=== PATIENT | female | born 2005 | race Caucasian/White ===

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

== ENCOUNTER 2024-09-13 06:04 | Emergency (ER) | payer BC, SELFPAY ==
[2024-09-13 06:08] VITALS: PULSE 90; TEMP 36.8; O2SAT 100; BMI 39.0
--- OUTSIDE RECORDS SUMMARY | 2024-09-13 06:11 | XMS_ITS | CCD ---
Author Organization [facility] Inform ion Partnership [facility] Care Team Providers Care Bag Worker Name Role Phone TING REYEZ Unavailable Unavailable WNEKLAKEISHA Unavailable Unavailable WNEK, LAKEISHA Welch Unavailable Unavailable AICHHOLZ, GAMMA OPERATOR ANA Admitting Unavailable AICHHOLZ, GAMMA OPERATOR ANA Consulting Unavailable WNEK, DR LAKEISHA Welch Primary Care Unavailable AICHHOLZ, GAMMA OPERATOR ANA Attending Unavailable AICHHOLZ, GAMMA OPERATOR ANA Admitting Unavailable WNEK, DR LAKEISHA Welch Primary Care Unavailable AICHHOLZ, MILADY ANA Consulting Unavailable AICHHOLZ, GAMMA OPERATOR ANA Attending Unavailable MISC, DR HURLEY Admitting Unavailable WNEK, DR LAKEISHA Welch Primary Care Unavailable MISC, DR HURLEY Attending Unavailable [facility] Primary Care Physician Unavailab ANA Matson Primary Care Physician James Stover Attending Unavailable James Stover Admitting Unavailable James Stover Attending Unavailable James Stover Admitting Unavailable James Stover Attending Unavailable James Stover Admitting Unavailable Aichholz MANAGER INVESTIGATIONS, Ana Unavailable Aichmolly MANAGER INVESTIGATIONS, Ana Unavailable Sudhakar Augustin MD Primary Care Provider [phone] Sudhakar Augustin MD Primary Care Provider NAPOLEON WHEELERA Attending Unavailable THOMASHKIRKZ ANA Attending Unavailable THOMASHMOLLY ANA Attending Unavailable LIAM ANA Attending Unavailable Allergies Allergy Classification Reported Allergen(s) Allergy Type Date of Onset Reaction(s) Facility (2 sources) No Known Medication Allergies; Translations: [No Known Medication Allergies] Propensity to adverse reactions (disorder) [facility] Repository Medications Current Medications Medication Drug Class(es) Dates Sig (Normalized) Sig (Original) atomoxetine 40 mg oral capsule (2 sources) Norepinephrine Reuptake Inhibitor Start: 05-02-2024 End: 06-01-2024 take 1 capsule by mouth once daily atomoxetine (Strattera) 40 MG capsule Indications: Attention deficit hyperactivity disorder (ADHD), combined type (CMS/HCC) Take 1 capsule (40 mg) by mouth Daily Swallow capsule whole; do not open. If opened accidentally, do not touch eyes; wash hands immediately (product is an eye irritant). 30 capsule 05/02/2024 06/01/2024 Active Ethinyl Estradiol / norgestimate (6 sources) Progestin, Estrogen Start: 02-28-2024 take 1 tablet by mouth once daily norgestimate-ethin yl estradiol (Ortho Tri-Cyclen,Triness a) 0.18/0.215/0.25 MG-35 MCG tablet Indications: Menorrhagia with regular cycle Take 1 tablet by mouth Daily for 28 days 28 tablet 2 02/28/2024 Active Start: 02-28-2024 End: 03-27-2024 take 1 tablet by mouth once daily norgestimate-ethinyl estradiol (Ortho Tri-Cyclen,Trinessa) 0.18/0.215/0.25 MG-35 MCG tablet Indications: Menorrhagia with regular cycle Take 1 tablet by mouth Daily for 28 days 28 tablet 2 02/28/2024 03/27/2024 Active FLUoxetine 40 mg oral capsule (19 sources) Serotonin Reuptake Inhibitor Start: 05-02-2024 End: 06-01-2024 take 1 capsule by mouth once daily FLUoxetine (PROzac) 40 MG capsule Indications: JUANITA (generalized anxiety disorder) (CMS/HCC) Take 1 capsule (40 mg) by mouth Daily 30 capsule 2 05/02/2024 Active Start: 11-02-2023 End: 05-02-2024 take 1 capsule by mouth once daily FLUoxetine (PROzac) 10 MG capsule Indications: JUANITA (generalized anxiety disorder) (CMS/HCC) Take 1 capsule (10 mg) by mouth Daily 30 capsule 1 02/28/2024 03/29/2024 Active Start: 11-02-2023 End: 05-02-2024 take 1 capsule by mouth once daily FLUoxetine (PROzac) 20 MG capsule Indications: JUANITA (generalized anxiety disorder) ([facility]) Take 1 capsule (20 mg) by mouth Daily 30 capsule 1 02/28/2024 03/29/2024 Active guanFACINE 2 mg oral tablet (2 sources) Central alpha-2 Adrenergic Agonist Start: 03-28-2020 take 1 tablet by mouth twice daily guanfacine 2 mg oral tablet 2 mg = 1 tab(s), Oral, BID, # 60 tab(s), Refills(s) 5, Pharmacy: [facility]/pharmacy #[id number], 158, cm, 01/19/20 9:42:00 EDT, Height/Length Dosing, 93, kg, 01/19/20 9:42:00 EDT, Weight Dosing Start Date: 03/28/20 Status: Ordered lisdexamfetamine dimesylate 70 mg oral capsule (6 sources) Central Nervous System Stimulant Start: 03-28-2020 Vyvanse 70 mg oral capsule 70 mg, 1 cap(s), Oral, qAM, 30 cap(s), Refill(s) 0, Fill after 05/24/2020, [facility]/pharmacy #[id number], 158, cm, 01/19/20 9:42:00 EDT, Height/Length Dosing, 93, kg, 01/19/20 9:42:00 EDT, Weight Dosing Start Date: 03/28/20 Status: Ordered sertraline 100 mg oral tablet (2 sources) Serotonin Reuptake Inhibitor Start: 03-28-2020 take 1 tablet by mouth once daily Zoloft 100 mg Tab 100 mg = 1 tab(s), Oral, Daily, # 30 tab(s), Refills(s) 5, Pharmacy: [facility]/pharmacy #[id number], 158, cm, 01/19/20 9:42:00 EDT, Height/Length Dosing, 93, kg, 01/19/20 9:42:00 EDT, Weight Dosing Start Date: 03/28/20 Status: Ordered Completed/Discontinued Medications Medication Drug Class(es) Dates Sig (Normalized) Sig (Original) 24 hr amphetamine aspartate 3.75 mg / amphetamine sulfate 3.75 mg / dextroamphetamine saccharate 3.75 mg / dextroamphetamine sulfate 3.75 mg extended release oral capsule (20 sources) Central Nervous System Stimulant Start: 11-04-2023 End: 05-28-2024 take 1 capsule by mouth in the morning, then take 5 capsules by mouth every twenty-four hours amphetamine-dextro amphetamine XR (Adderall XR) 15 MG 24 hr capsule Indications: Attention deficit hyperactivity disorder (ADHD), combined type (CMS/HCC) Take 1 capsule (15 mg) by mouth in the morning. Do not crush or chew.. Do not start before January 03, 2024. 30 capsule 01/03/2024 02/28/2024 Discontinued (Therapy completed) Start: 03-28-2020 Adderall 15 mg oral tablet 15 mg, 1 tab(s), Oral, BID, 60 tab(s), Refill(s) 0, with breakfast and lunch Fill after 05/24/2020, [facility]/pharmacy #[id number], 158, cm, 01/19/20 9:42:00 EDT, Height/Length Dosing, 93, kg, 01/19/20 9:42:00 EDT, Weight Dosing Start Date: 03/28/20 Status: Ordered Problems Active Problems Problem Classification Problem Date Documented Date Episodic/Chronic Anxiety disorders (13 sources) Generalized anxiety disorder; Translations: [Generalized anxiety disorder] Onset: 08-02-2023 12-16-2018 Chronic Attention-deficit, conduct, and disruptive behavior disorders (13 sources) Attention deficit hyperactivity disorder, combined type; Translations: [Attention-deficit hyperactivity disorder, combined type] Onset: 08-02-2023 12-16-2018 Chronic Esophageal disorders (7 sources) Gastroesophageal reflux disease without esophagitis; Translations: [Gastro-esophageal reflux disease without esophagitis] Onset: 08-02-2023 08-02-2023 Chronic Menstrual disorders (8 sources) Menorrhagia; Translations: [Excessive and frequent menstruation with regular cycle] Onset: 02-28-2024 02-28-2024 Chronic Other nutritional; endocrine; and metabolic disorders (11 sources) Obesity caused by energy imbalance; Translations: [Morbid (severe) obesity due to excess calories] Onset: 03-26-2017 02-28-2024 Chronic Other nutritional; endocrine; and metabolic disorders (11 sources) Body mass index 30+ - obesity; Translations: [Body mass index (BMI) 35.0-35.9, adult] Onset: 02-28-2024 02-28-2024 Chronic Other upper respiratory disease (7 sources) Perennial allergic rhinitis; Translations: [Other allergic rhinitis] Onset: 03-26-2017 08-02-2023 Chronic Other upper respiratory disease (7 sources) Allergic disposition; Translations: [Other allergic rhinitis] Onset: 11-04-2023 11-04-2023 Chronic Residual codes; unclassified (4 sources) Obstructive sleep apnea (adult) (pediatric); Translations: [OBSTRUCTIVE SLEEP APNEA] Onset: 07-20-2022 Chronic Residual codes; unclassified (9 sources) Obstructive sleep apnea syndrome; Translations: [Obstructive sleep apnea (adult) (pediatric)] Onset: 03-26-2017 02-28-2024 Chronic Past or Other Problems Problem Classification Problem Date Documented Da te Episodic/Chronic Mood disorders (7 sources) Mood disorders Onset: 11-04-2023 11-04-2023 Other skin disorders (7 sources) Acne vulgaris; Translations: [Acne vulgaris] Onset: 08-02-2023 08-02-2023 Episodic Results Test Name Value Interpretation Reference Range Facility C Urineon 10-23-2023 Bacteria identified Cx Nom (U) Microbiology PROCEDURE: Urine Culture [R1] SOURCE: U CleanCatch BODY SITE: COLLECTED DATE/TIME: 10/20/2023 12:00 EDT RECEIVED DATE/TIME: 10/21/2023 19:40 EDT START DATE/TIME: 10/21/2023 19:40 EDT FREE TEXT SOURCE: Ck COUGHLIN, James Stover MD, James Yeager FINAL REPORTS Final Report [] Verified Date/Time: 10/23/2023 09:47 EDT <10,000 cfu/ml Mixed skin contaminants Performing Locations R1: This test was performed at: [facility], [address] [place] [address], [id number] , , Normal [facility] Comment on above: Performed By: #### 2 [id number] #### [facility] [address] [place] [address] Hep Bs Agon 10-22-2023 HBV surface Ag IA Ql Negative Invalid Interpretation Code Negative [facility] Comment on above: Result Comment: Perf ormed at: [facility] [address] [id number] PhD Janae Calles Performed By: #### 2 [id number] #### [facility] [address] [place] [id number] RPR with Conf Rfxon 10-22-19 Reagin Ab RPR Ql (S) Non-Reactive Invalid Interpretation Code Non Reactive [facility] Comment on above: Result Comment: Perf ormed at: [address] [id number] PhD Janae Calles Performed By: #### 1 [id number] #### [facility] [address] [place] [address] Rubella IgGon 10-22-2023 Rubella virus IgG Qn (S) 8.67 [IU]/mL Invalid Interpretation Code Immune >0.99 [facility] Comment on above: Result Comment: Non- immune <0.90 Equivocal 0.90 - 0.99 Immune >0.99 Performed at: [address] [id number] PhD Janae Calles Performed By: #### 1 [id number] #### [facility] [address] [place] [address] ABSCon 10-21-2023 ABSC Gel Interp Negative Normal [facility] Comment on above: Performed By: #### 1 [id number] #### [facility] [address] [place] [address] Physician Orderon 10-21-2023 Physician Order [id number]# 1.00TIFF Normal [facility] Consent for Treatmenton 09-29 Consent for Treatment [id number] #1.00TIFF Normal [facility] Physician Orderon 10-20-2023 Physician Order [id number] #1.00TIFF Normal [facility] Physician Order [id number]#1.00TIFF Normal [facility] BhCG Quanton 09-28-2023 HCG.beta subunit Qn 443 m[IU]/mL High 1-3 Fis [facility] Comment on above: Result Comment: 'F N ON < 1 - 3' ' 0.2 - 1 WEEK = 5 TO 50' ' 1 - 2 WEEKS = 50 - 500' ' 2 - 3 WEEKS = 100 - 5000' ' 3 - 4 WEEKS = 500 - 51112' ' 4 - 5 WEEKS = 1000 - 61269' ' 5 - 6 WEEKS = 92456 - 919575' ' 6 - 8 WEEKS = 38255 - 318005' ' 8 - 12 WEEKS = 73651 - 614233' Performed By: #### 2 [id number] #### [facility] [address] [place] [address] CHEMISTRYOrdered By: SYSTEM SYSTEM on 09-28-2023 HCG.beta [...] 3 - 4 WEEKS = 500 - 91623' ' 4 - 5 WEEKS = 1000 - 78392' ' 5 - 6 WEEKS = 36213 - 386804' ' 6 - 8 WEEKS = 07420 - 657584' ' 8 - 12 WEEKS = 96627 - 505789' Consent for Treatmenton 08-31 Consent for Treatment [id number] #1.00TIFF Normal [facility] Physician Orderon 09-28-2023 Physician Order [id number]# 1.00TIFF Normal [facility] COVID-19 FRMCon 08-06-2021 SARS-CoV-2 (COVID-19) RNA MARIANELA+probe Ql (Unsp spec) Positive Critically abnormal Negative [facility] Comment on above: Order Comment: Healt hcare Worker?: N Result Comment: Posi tive results will only be called to Providers for the following groups of patients: Pre-Surgical Testing, Emergency Room, and Inpatients. Testing for SARS-CoV-2 by RT-PCR This test was developed and its performance characteristics determined by [employer] and validated at the [facility]. This test has not been FDA cleared [...] is terminated or revoked sooner. PERFORMED BY: [address] [place] [address] PATHOLOGIST PROFESSIONAL DRIVER LAURA NAVARRO M.D. Performed By: #### C OVID 19 [facility] [place] #### [address] Urine Cultureon 12-10-2020 Bacteria identified Cx Nom (U) Final report Critically abnormal . [facility] Comment on above: Order Comment: Reaso n for Exam Dysuria Performed By: #### U RINE CULTURE #### [facility] , Ur Cult Antimic Suceptibility Normal . [facility] Comment on above: Order Comment: Reaso n [...] R Tobramycin S Trimethoprim/Sulfa S Performed at: - [facility] [address] [id number] Clinical Account Manager: Stevan Cardoso PhD, Phone: [phone] PERFORMED BY: [facility] [address] PATHOLOGIST PROFESSIONAL DRIVER LAURA NAVARRO M.D. Performed By: #### U RINE CULTURE #### [facility] , Urine Culture, Res 1 Abnormal . [facility] Comment on above: Order Comment: Reaso n [...] CULTURE #### [facility] , Progress Noteon 03-26-2017 Cemetery Warden Authentication Interface Message Text Subjective:Patient ID: Alvarez [...] & Environmental History: 03/26/2017 Patient's primary residence: [place] Household members: mother, patient, 1 brother and [...] step. Return to clinic 2 months. Normal [facility] Vital Signs Date Time Vital Sign Value Performing Clinician Manny castellanos 05-02-2024 15:32-0500 Body height 160 cm Ana Liam MANAGER INVESTIGATIONS Work Phone: [facility] 05-02-2024 15:32-0500 Body mass index (BMI) [Ratio] 37.77 kg/m2 Ana Liam MANAGER INVESTIGATIONS Work Phone: [facility] 05-02-2024 15:32-0500 Body temperature 97.81 [degF] Ana Liam MANAGER INVESTIGATIONS Work Phone: [facility] 05-02-2024 15:32-0500 Body weight 96.71 kg Ana Wheeler MANAGER INVESTIGATIONS Work Phone: [facility] 05-02-2024 15:32-0500 Diastolic blood pressure 76 mm[Hg] Ana Liam MANAGER INVESTIGATIONS Work Phone: [facility] 05-02-2024 15:32-0500 Heart rate 112 /min Ana Wheeler MANAGER INVESTIGATIONS Work Phone: [facility] 05-02-2024 15:32-0500 Respiratory rate 18 /min Ana Wheeler MANAGER INVESTIGATIONS Work Phone: [facility] 05-02-2024 15:32-0500 SaO2% (BldA) [Mass fraction] 97 % Ana Aichholz MANAGER INVESTIGATIONS Work Phone: [facility] 05-02-2024 15:32-0500 Systolic blood pressure 110 mm[Hg] Ana Aichholz MANAGER INVESTIGATIONS Work Phone: [facility] 02-28-2024 13:42-0400 Body height 160 cm Ana Aichholz MANAGER INVESTIGATIONS Work Phone: [facility] 02-28-2024 13:42-0400 Body mass index (BMI) [Ratio] 37.2 kg/m2 Ana Aichholz MANAGER INVESTIGATIONS Work Phone: [facility] 02-28-2024 13:42-0400 Body temperature 98.49 [degF] Ana Aichholz MANAGER INVESTIGATIONS Work Phone: [facility] 02-28-2024 13:42-0400 Body weight 95.25 kg Ana Aichholz MANAGER INVESTIGATIONS Work Phone: [facility] 02-28-2024 13:42-0400 Diastolic blood pressure 76 mm[Hg] Ana Aichholz MANAGER INVESTIGATIONS Work Phone: [facility] 02-28-2024 13:42-0400 Heart rate 91 /min Ana Aichholz MANAGER INVESTIGATIONS Work Phone: [facility] 02-28-2024 13:42-0400 Respiratory rate 18 /min Ana Aichholz MANAGER INVESTIGATIONS Work Phone: [facility] 02-28-2024 13:42-0400 SaO2% (BldA) [Mass fraction] 98 % Ana Aichholz MANAGER INVESTIGATIONS Work Phone: [facility] 02-28-2024 13:42-0400 Systolic blood pressure 110 mm[Hg] Ana Aichholz MANAGER INVESTIGATIONS Work Phone: [facility] Healthcare Encounters Encounter Date Encounter Type Care Provider Facility Start: 08-03-2024 End: 08-03-2024 Bamboo flowsheet Ana Dennisz MANAGER INVESTIGATIONS Work Phone: [facility] Start: 08-03-2024 End: 08-03-2024 Bamboo flowsheet Ana Aichholz MANAGER INVESTIGATIONS Work Phone: [facility] Start: 08-03-2024 End: 08-03-2024 ambulatory ANA AICHHOLZ Not Available Start: 05-02-2024 End: 05-02-2024 ambulatory ANA AICHHOLZ Not Available Start: 05-02-2024 End: 05-02-2024 Office outpatient visit 15 minutes Ana Thomashkirkz MANAGER INVESTIGATIONS Work Phone: [facility] Comment on above: Attention deficit hy peractivity disorder (ADHD), combined type (CMS/HCC) (Primary Dx); JUANITA (generalized anxiety disorder) (CMS/HCC); Morbid (severe) obesity due to excess calories (CMS/HCC); Body mass index (BMI) 35.0-35.9, adult Start: 05-02-2024 End: 05-02-2024 Bamboo flowsheet Ana Thomashholz MANAGER INVESTIGATIONS Work Phone: [facility] Start: 05-02-2024 End: 05-02-2024 Bamboo flowsheet Ana Aichholz MANAGER INVESTIGATIONS Work Phone: [facility] Start: 02-28-2024 End: 02-28-2024 Bamboo flowsheet Ana Aichholz MANAGER INVESTIGATIONS Work Phone: [facility] Start: 02-28-2024 End: 02-28-2024 Bamboo flowsheet Ana Aichholz MANAGER INVESTIGATIONS Work Phone: [facility] Start: 02-28-2024 End: 02-28-2024 Office outpatient visit 25 minutes Ana Aichholz MANAGER INVESTIGATIONS Work Phone: [facility] Comment on above: JUANITA (generalized anx iety disorder) (CMS/HCC) (Primary Dx); Morbid (severe) obesity due to excess calories (CMS/HCC); Obstructive sleep apnea (adult) (pediatric); Body mass index (BMI) 35.0-35.9, adult; Attention deficit hyperactivity disorder (ADHD), combined type (CMS/HCC); Menorrhagia with regular cycle Start: 02-28-2024 End: 02-28-2024 ambulatory ANA WHEELER Not Available Start: 11-04-2023 End: 11-04-2023 ambulatory ANA LIAM Not Available Start: 10-20-2023 End: 10-20-2023 Patient encounter procedure James Stover [facility] Start: 10-20-2023 End: 10-21-2023 ambulatory James Stover [facility] Start: 09-28-2023 End: 09-29-2023 ambulatory James Stover [facility] Start: 09-28-2023 End: 09-28-2023 Patient encounter procedure James Stover [facility] Start: 07-20-2022 End: 07-21-2022 ambulatory GAMMA OPERATOR ANA LIAM Facility:[facility] Start: 06-29-2022 End: 06-30-2022 ambulatory GAMMA OPERATOR ANA LIAM Facility:[facility] Start: 08-05-[address] DOCTOR CARRANZA Facility :[facility] Start: 03-26-2017 End: 03-26-2017 Ambulatory TING [facility] Procedures Date Procedure Procedure Detail Performing Clinician Start: 05-31-2014 Tonsillectomy and adenoidectomy James Stover Plan of Treatment Date Care Activity Detail Author Start: 02-28-2024 End: 02-28-2024 Patient encounter procedure 02/28/2024 1:40 PM EDT Office Visit [facility] [address] [place] [address] Ana Wheeler NP [address] [place] [address] Attention deficit hyperactivity disorder (ADHD), combined type (CMS/HCC) (Primary Dx); Morbid (severe) obesity due to excess calories (CMS/HCC); Obstructive sleep apnea (adult) (pediatric); Body mass index (BMI) 35.0-35.9, adult [facility] Comment on above: Attention deficit hy peractivity disorder (ADHD), combined type ([facility]) (Primary Dx); Morbid (severe) obesity due to excess calories ([facility]); Obstructive sleep apnea (adult) (pediatric); Body mass index (BMI) 35.0-35.9, adult Immunizations Immunization Date Immunization Notes Care Provider Mariela mi 12-31-2021 Human Papillomavirus 9-valent vaccine Ana Wheeler MANAGER INVESTIGATIONS Work Phone: [facility] 12-31-2021 meningococcal B vacc ine, recombinant, OMV, adjuvanted Anacarlie Wheeler MANAGER INVESTIGATIONS Work Phone: [facility] 12-31-2021 meningococcal polysaccharide (groups A, C, Y and W-135) diphtheria toxoid conjugate vaccine (MCV4P) Anacarlie Wheeler MANAGER INVESTIGATIONS Work Phone: [facility] 04-25-2021 Pfizer Purple Cap SARS-CoV-2 Vaccination Ana Thomashholz MANAGER INVESTIGATIONS Work Phone: [facility] 11-13-2020 Pfizer Purple Cap SARS-CoV-2 Vaccination Ana Aichholz MANAGER INVESTIGATIONS Work Phone: [facility] 10-21-2020 Pfizer Purple Cap SARS-CoV-2 Vaccination Ana Aichholz MANAGER INVESTIGATIONS Work Phone: [facility] 03-20-2020 influenza, injectabl e, quadrivalent, preservative free Ana Liam MANAGER INVESTIGATIONS Work Phone: [facility] 01-12-2017 meningococcal polysaccharide (groups A, C, Y and W-135) diphtheria toxoid conjugate vaccine (MCV4P) Anacarlie Wheeler MANAGER INVESTIGATIONS Work Phone: [facility] 01-12-2017 tetanus toxoid, redu david diphtheria toxoid, and acellular pertussis vaccine, adsorbed Ana Liam MANAGER INVESTIGATIONS Work Phone: [facility] 03-22-2014 influenza, seasonal, injectable Ana Aichholz MANAGER INVESTIGATIONS Work Phone: [facility] 07-06-2013 influenza virus vacc ine, whole virus Anacarlie Collinsz MANAGER INVESTIGATIONS Work Phone: [facility] 12-02-2010 hepatitis A vaccine, pediatric/adolescent dosage, 2 dose schedule Ana Amandaholz MANAGER INVESTIGATIONS Work Phone: [facility] 01-02-2010 Diphtheria, tetanus toxoids and acellular pertussis vaccine, and poliovirus vaccine, inactivated Ana Aicvaleriaholz MANAGER INVESTIGATIONS Work Phone: [facility] 01-02-2010 hepatitis A vaccine, pediatric/adolescent dosage, 2 dose schedule Anacarlie Patelholz MANAGER INVESTIGATIONS Work Phone: [facility] 01-02-2010 measles, mumps, rube lla, and varicella virus vaccine Ana Amandaholz MANAGER INVESTIGATIONS Work Phone: [facility] 09-28-2005 diphtheria, tetanus toxoids and acellular pertussis vaccine Ana Amandaholz MANAGER INVESTIGATIONS Work Phone: [facility] 09-28-2005 haemophilus influenz ae type b vaccine, PRP-T conjugate Ana Thomasholz MANAGER INVESTIGATIONS Work Phone: [facility] 07-06-2005 measles, mumps and r ubella virus vaccine Ana Aichholz MANAGER INVESTIGATIONS Work Phone: [facility] 07-06-2005 pneumococcal conjuga te vaccine, 7 valent Ana Aicvaleriaholz MANAGER INVESTIGATIONS Work Phone: [facility] 07-06-2005 varicella virus vaccine Ana Aichholz MANAGER INVESTIGATIONS Work Phone: [facility] 02-04-2005 diphtheria, tetanus toxoids and acellular pertussis vaccine, unspecified formulation Ana Aichholz MANAGER INVESTIGATIONS Work Phone: [facility] 02-04-2005 haemophilus influenz ae type b vaccine, conjugate unspecified formulation Ana Aichholz MANAGER INVESTIGATIONS Work Phone: [facility] 02-04-2005 pneumococcal conjuga te vaccine, 7 valent Ana Aichholz MANAGER INVESTIGATIONS Work Phone: [facility] 02-04-2005 poliovirus vaccine, inactivated Ana Aichholz MANAGER INVESTIGATIONS Work Phone: [facility] 01-02-2005 diphtheria, tetanus toxoids and acellular pertussis vaccine, unspecified formulation Ana Aichholz MANAGER INVESTIGATIONS Work Phone: [facility] 01-02-2005 haemophilus influenz ae type b conjugate and Hepatitis B vaccine Ana Aichholz MANAGER INVESTIGATIONS Work Phone: [facility] 01-02-2005 pneumococcal conjuga te vaccine, 7 valent Ana Aichholz MANAGER INVESTIGATIONS Work Phone: [facility] 01-02-2005 poliovirus vaccine, inactivated Ana Aichholz MANAGER INVESTIGATIONS Work Phone: [facility] 2004 diphtheria, tetanus toxoids and acellular pertussis vaccine, unspecified formulation Ana Aichholz MANAGER INVESTIGATIONS Work Phone: [facility] 2004 haemophilus influenz ae type b conjugate and Hepatitis B vaccine Ana Aichholz MANAGER INVESTIGATIONS Work Phone: [facility] 2004 pneumococcal conjuga te vaccine, 7 valent Ana Aichholz MANAGER INVESTIGATIONS Work Phone: [facility] 2004 poliovirus vaccine, inactivated Ana Aichholz MANAGER INVESTIGATIONS Work Phone: [facility] 2004 hepatitis B vaccine, adult dosage Ana Aichholz MANAGER INVESTIGATIONS Work Phone: [facility] Payers Date Payer Category Payer Medicaid [id number] [address] [facility] [id number] 2017 Unknown 2017 Unknown [id number] 2004 Unknown [id number] 727 2004 Unknown [id number] 727 2004 Unknown [id number] 727 2004 Unknown [id number] 1259 2004 Unknown [id number] 1259 2004 Unknown [id number] 9 2004 Unknown [id number]. 1259 1980 Unknown [id number]. 593 1980 Unknown [id number]. 593 1980 Unknown [id number] 593 1959 Unknown [id number] 1959 Unknown [id number] Social History Date Type Detail Facility Start: 03-28-2020 End: 11-04-2023 Tobacco smoking status Never smoked tobacco (finding) [facility] Tobacco smoking status Never [facility] Start: 11-04-2023 End: 02-28-2024 Sex Assigned At Female [facility] Start: 11-04-2023 Tobacco use and exposure Smokeless tobacco non-user [facility] Start: 02-28-2024 End: 05-02-2024 Alcoholic beverage intake Lifetime non-drinker (finding) [facility] Start: 11-04-2023 End: 02-28-2024 History of Social function [facility] Start: 08-02-2023 Alcohol Comment caffine; 2 aquiles gy drinks daily [facility] Start: 2004 Sex assigned at Not on file [facility] NEGATED: Highlighted rowStart: NINF History of tobacco use Passive smoker [facility] History of Present illness Narrative 05-02-2024 KESHAWN SOL - 05/02/2024 3:20 PM ESTAna Wheeler, MILY - 05/02/2024 3:20 PM ESTAna Wheeler, MANAGER INVESTIGATIONS - 05/02/2024 7:29 AM ESTAna Wheeler, MANAGER INVESTIGATIONS - 05/02/2024 7:29 AM EST Note Date & Type Note Facility 05-02-2024 History of Presen t illness Narrative Pt would like to discuss going back to twice a day instead of the ER Images from the original note were not included. Alvarez Dasilva is a 18 y.o. female presents with chief complaint of Anxiety (JUANITA) HPI: Anxiety Presents for follow-up visit. Symptoms include decreased concentration, depressed mood, excessive worry, irritability, muscle tension and nervous/anxious behavior. Patient reports no chest pain, dizziness, nausea, palpitations, shortness of breath or suicidal ideas. Symptoms occur most days. The severity of symptoms is moderate. Compliance with medications is 76-100%. ADHD This is a chronic problem. The current episode started more than 1 year ago. The problem occurs daily. The problem has been waxing and waning. Pertinent negatives include no abdominal pain, arthralgias, chest pain, chills, congestion, coughing, fever, headaches, joint swelling, myalgias, nausea, numbness, rash, sore throat, visual change or vomiting. The symptoms are aggravated by stress. Treatments tried: adderall XR. The treatment provided moderate relief. SUBJECTIVE: MEDICATIONS: Current Outpatient Medications Medication Instructions amphetamine-dextroamphetamine XR (Adderall XR) 15 MG 24 hr capsule 15 mg, Oral, Every morning, Do not crush or chew. atomoxetine (STRATTERA) 40 mg, Oral, Daily, Swallow capsule whole; do not open. If opened accidentally, do not touch eyes; wash hands immediately (product is an eye irritant). FLUoxetine (PROZAC) 40 mg, Oral, Daily norgestimate-ethinyl estradiol (Ortho Tri-Cyclen,Trinessa) 0.18/0.215/0.25 MG-35 MCG tablet 1 tablet, Oral, Daily ALLERGIES: No Known Allergies REVIEW OF SYMPTOMS: Review of Systems Constitutional: Positive for irritability. Negative for appetite change, chills and fever. HENT: Negative for congestion, ear pain and sore throat. Eyes: Negative for pain, discharge, redness and visual disturbance. Respiratory: Negative for cough, shortness of breath and wheezing. Cardiovascular: Negative for chest pain, palpitations and leg swelling. Gastrointestinal: Negative for abdominal pain, blood in stool, constipation, diarrhea, nausea and vomiting. Genitourinary: Negative for difficulty urinating, dysuria and frequency. Musculoskeletal: Negative for arthralgias, back pain, joint swelling and myalgias. Skin: Negative for rash and wound. Neurological: Negative for dizziness, tremors, seizures, syncope, numbness and headaches. Psychiatric/Behavioral: Positive for decreased concentration. Negative for behavioral problems, self-injury and suicidal ideas. The patient is nervous/anxious. Depression Hematological: Does not bruise/bleed easily. Endocrine: Negative for polydipsia, polyphagia and polyuria. Allergic/Immunologic: Negative for environmental allergies and food allergies. PAST MEDICAL HISTORY Past Medical History: Diagnosis Date Adenotonsillar hypertrophy ADHD (attention deficit hyperactivity disorder) (CMS/HCC) Bone cyst LAUREN (obstructive sleep apnea) Scoliosis Past Surgical History: Procedure Laterality Date ADENOIDECTOMY TONSILLECTOMY 07/2014 T&A family history includes Heart disease in her mother; Hypertension in her father and mother. OBJECTIVE: Visit Vitals BP 110/76 (BP Location: Left arm, Patient Position: Sitting, BP Cuff Size: Adult long) Pulse (!) 112 Temp 97.8 F (Temporal) Resp 18 Ht 5' 3 Wt 213 lb 3.2 oz SpO2 97% BMI 37.77 kg/m Smoking Status Never BSA 2.07 m Physical Exam Vitals and nursing note reviewed. Constitutional: General: She is not in acute distress. Appearance: Normal appearance. HENT: Head: Normocephalic and atraumatic. Right Ear: External ear normal. Left Ear: External ear normal. Nose: Nose normal. Mouth/Throat: Mouth: Mucous membranes are moist. Eyes: Extraocular Movements: Extraocular movements intact. Conjunctiva/sclera: Conjunctivae normal. Cardiovascular: Rate and Rhythm: Normal rate and regular rhythm. Pulses: Normal pulses. Heart sounds: Normal heart sounds. Pulmonary: Effort: Pulmonary effort is normal. Breath sounds: Normal breath sounds. Abdominal: General: Bowel sounds are normal. There is no distension. Palpations: Abdomen is soft. There is no mass. Tenderness: There is no abdominal tenderness. Musculoskeletal: General: Normal range of motion. Cervical back: Normal range of motion and neck supple. Skin: General: Skin is warm and dry. Capillary Refill: Capillary refill takes 2 to 3 seconds. Findings: No rash. Neurological: General: No focal deficit present. Mental Status: She is alert and oriented to person, place, and time. Psychiatric: Mood and Affect: Mood normal. Behavior: Behavior normal. Thought Content: Thought content normal. Judgment: Judgment normal. ASSESSMENT AND PLAN: Follow up in about 2 months (around 07/03/2024) for Recheck. Problem List Items Addressed This Visit Morbid (severe) obesity due to excess calories (CMS/HCC) Discussed with patient their BMI (actual, verses recommended). We have also discussed lifestyle modifications: attempts to perform physical activity as chronic conditions allow, also to monitor dietary intake: increasing protein/fruits/veggies and lowering carb intake (unless contraindicated). Limit sodas, juices, and sugary drinks. Also discussed oral medications that can be utilized for weight loss, as well as surgical options for weight loss. Attention deficit hyperactivity disorder (ADHD), combined type (CMS/HCC) - Primary OARRS reviewed Stop adderall XR and we will trial strattera in stead Fu in 3 months Relevant Medications atomoxetine (Strattera) 40 MG capsule JUANITA (generalized anxiety disorder) (CMS/HCC) Current medication is prozac at 30mg daily, stressful relation ship with partner who struggles with recovery. That person is not working, pt feels like this living situation contributes to feeling more down. Does not have insurance, cannot afford counseling, willing to increase her dose of fluoxetine to 40mg daily. Also she will look into possible on line counseling Fu in 2 months for recheck Relevant Medications FLUoxetine (PROzac) 40 MG capsule Body mass index (BMI) 35.0-35.9, adult Associated Problem(s): Attention deficit hyperactivity disorder (ADHD), combined type (CMS/HCC) OARRS reviewed Stop adderall XR and we will trial strattera in stead Fu in 3 months Associated Problem(s): JUANITA (generalized anxiety disorder) (CMS/HCC) Current medication is prozac at 30mg daily, stressful relation ship with partner who struggles with recovery. That person is not working, pt feels like this living situation contributes to feeling more down. Does not have insurance, cannot afford counseling, willing to increase her dose of fluoxetine to 40mg daily. Also she will look into possible on line counseling Fu in 2 months for recheck Associated Problem(s): Morbid (severe) obesity due to excess calories (CMS/HCC) Discussed with patient their BMI (actual, verses recommended). We have also discussed lifestyle modifications: attempts to perform physical activity as chronic conditions allow, also to monitor dietary intake: increasing protein/fruits/veggies and lowering carb intake (unless contraindicated). Limit sodas, juices, and sugary drinks. Also discussed oral medications that can be utilized for weight loss, as well as surgical options for weight loss. documented in this encounter [facility] Instructions 05-02-2024 Patient Instructions Note Date & Type Note Facility 05-02-2024 Instructions Ana Wheeler NP - 05/02/2024 3:20 PM EST Increase fluoxetine to 40mg daily Stop adderall XR Start strattera was 40mg daily documented in this encounter [facility] History of Present illness Narrative 02-28-2024 Ana Wheeler NP - 02/28/2024 2:33 PM Autumn Wheeler NP - 02/28/2024 2:32 PM Autumn Wheeler NP - 02/28/2024 2:31 PM EDTHUMBKESHAWN CANAS - 02/28/2024 1:40 PM EDT Note Date & Type Note Facility 02-28-2024 History of Presen t illness Narrative Associated Problem(s): JUANITA (generalized anxiety disorder) ([facility]) Out of meds for about 4 weeks, does not have insurance, and did not have money Will have her restart meds: 20mg for 2 weeks, then back up to 30mg daily Associated Problem(s): Attention deficit hyperactivity disorder (ADHD), combined type (CMS/HCC) OARRS reviewed Cont adderall XR as well Fu in 3 months Associated Problem(s): Menorrhagia with regular cycle Start BCP Hand out on ACHES given Wednesday Start explained Pt is asking to be on metformin for her PCOS Images from the original note were not included. Alvarez Dasilva is a 18 y.o. female presents with chief complaint of No chief complaint on file. HPI: Would like to start BCP for BC as well as heavy painful periods LMP 02/21/24 ADHD This is a chronic problem. The current episode started more than 1 year ago. The problem occurs daily. The problem has been unchanged. Pertinent negatives include no abdominal pain, arthralgias, chest pain, chills, congestion, coughing, fever, headaches, joint swelling, myalgias, nausea, rash, sore throat or vomiting. Nothing aggravates the symptoms. Treatments tried: ADHD meds. The treatment provided significant relief. Anxiety Presents for follow-up visit. Symptoms include decreased concentration and nervous/anxious behavior. Patient reports no chest pain, compulsions, depressed mood, dizziness, excessive worry, insomnia, irritability, nausea, palpitations, panic, shortness of breath or suicidal ideas. Symptoms occur occasionally. The severity of symptoms is mild. Compliance with medications is 76-100%. SUBJECTIVE: MEDICATIONS: Current Outpatient Medications Medication Instructions FLUoxetine (PROZAC) 20 mg, Oral, Daily FLUoxetine (PROZAC) 10 mg, Oral, Daily ALLERGIES: No Known Allergies REVIEW OF SYMPTOMS: Review of Systems Constitutional: Negative for appetite change, chills, fever and irritability. HENT: Negative for congestion, ear pain and sore throat. Eyes: Negative for pain, discharge, redness and visual disturbance. Respiratory: Negative for cough, shortness of breath and wheezing. Cardiovascular: Negative for chest pain, palpitations and leg swelling. Gastrointestinal: Negative for abdominal pain, blood in stool, constipation, diarrhea, nausea and vomiting. Genitourinary: Positive for menstrual problem. Negative for difficulty urinating, dysuria and frequency. Musculoskeletal: Negative for arthralgias, back pain, joint swelling and myalgias. Skin: Negative for rash and wound. Neurological: Negative for dizziness, tremors, seizures, syncope and headaches. Psychiatric/Behavioral: Positive for decreased concentration. Negative for behavioral problems, self-injury and suicidal ideas. The patient is nervous/anxious. The patient does not have insomnia. Hematological: Does not bruise/bleed easily. Endocrine: Negative for polydipsia, polyphagia and polyuria. Allergic/Immunologic: Negative for environmental allergies and food allergies. PAST MEDICAL HISTORY Past Medical History: Diagnosis Date Adenotonsillar hypertrophy ADHD (attention deficit hyperactivity disorder) (CMS/HCC) Bone cyst LAUREN (obstructive sleep apnea) Scoliosis Past Surgical History: Procedure Laterality Date ADENOIDECTOMY TONSILLECTOMY 07/2014 T&A family history includes Heart disease in her mother; Hypertension in her father and mother. OBJECTIVE: Visit Vitals BP 110/76 (BP Location: Left arm, Patient Position: Sitting, BP Cuff Size: Adult long) Pulse 91 Temp 98.5 F (Temporal) Resp 18 Ht 5' 3 Wt 210 lb SpO2 98% BMI 37.20 kg/m Smoking Status Never BSA 2.06 m Physical Exam Vitals and nursing note reviewed. Constitutional: General: She is not in acute distress. Appearance: Normal appearance. HENT: Head: Normocephalic and atraumatic. Right Ear: External ear normal. Left Ear: External ear normal. Nose: Nose normal. Mouth/Throat: Mouth: Mucous membranes are moist. Eyes: Extraocular Movements: Extraocular movements intact. Conjunctiva/sclera: Conjunctivae normal. Cardiovascular: Rate and Rhythm: Normal rate and regular rhythm. Pulses: Normal pulses. Heart sounds: Normal heart sounds. Pulmonary: Effort: Pulmonary effort is normal. Breath sounds: Normal breath sounds. Abdominal: General: Bowel sounds are normal. There is no distension. Palpations: Abdomen is soft. There is no mass. Tenderness: There is no abdominal tenderness. Musculoskeletal: General: Normal range of motion. Cervical back: Normal range of motion and neck supple. Skin: General: Skin is warm and dry. Capillary Refill: Capillary refill takes 2 to 3 seconds. Findings: No rash. Neurological: General: No focal deficit present. Mental Status: She is alert and oriented to person, place, and time. Psychiatric: Mood and Affect: Mood normal. Behavior: Behavior normal. Thought Content: Thought content normal. Judgment: Judgment normal. ASSESSMENT AND PLAN: No follow-ups on file. Problem List Items Addressed This Visit Morbid (severe) obesity due to excess calories (CMS/HCC) Obstructive sleep apnea (adult) (pediatric) Attention deficit hyperactivity disorder (ADHD), combined type (CMS/HCC) - Primary OARRS reviewed Cont adderall XR as well Fu in 3 months Relevant Medications amphetamine-dextroamphetamine XR (Adderall XR) 15 MG 24 hr capsule amphetamine-dextroamphetamine XR (Adderall XR) 15 MG 24 hr capsule (Start on 03/29/2024) amphetamine-dextroamphetamine XR (Adderall XR) 15 MG 24 hr capsule (Start on 04/28/2024) JUANITA (generalized anxiety disorder) ([facility]) Out of meds for about 4 weeks, does not have insurance, and did not have money Will have her restart meds: 20mg for 2 weeks, then back up to 30mg daily Relevant Medications FLUoxetine (PROzac) 10 MG capsule FLUoxetine (PROzac) 20 MG capsule Body mass index (BMI) 35.0-35.9, adult Menorrhagia with regular cycle Start BCP Hand out on ACHES given Wednesday Start explained Relevant Medications norgestimate-ethinyl estradiol (Ortho Tri-Cyclen,Trinessa) 0.18/0.215/0.25 MG-35 MCG tablet documented in this encounter [facility] Evaluation + Plan note 10-20-2023 Note Date & Type Note Facility 10-20-2023 Evaluation + Plan note Diagnostic Tests PendingRPR with Conf Rfx 10/20/23Rubella Antibody IgG 10/20/23epatitis B Surface Antigen 10/20/23 [facility] Evaluation + Plan note Note Date & Type Note Facility Evaluation + Plan note No data available for this section [facility] Evaluation note Note Date & Type Note Facility Evaluation note Diagnosis JUANITA (generalized anxiety disorder) ([facility]/HCC)- Primary Generalized anxiety disorder Attention deficit hyperactivity disorder (ADHD), combined type ([facility]) Class 1 obesity due to excess calories without serious comorbidity with body mass index (BMI) of 33.0 to 33.9 in adult JUANITA (generalized anxiety disorder) ([facility]/HCC)- Primary Generalized anxiety disorder Attention deficit hyperactivity disorder (ADHD), combined type ([facility]) Class 1 obesity due to excess calories without serious comorbidity with body mass index (BMI) of 33.0 to 33.9 in adult Environmental and seasonal allergies JUANITA (generalized anxiety disorder) ([facility])- Primary Generalized anxiety disorder Morbid (severe) obesity due to excess calories ([facility]/HCC) Obstructive sleep apnea (adult) (pediatric) Body mass index (BMI) 35.0-35.9, adult Attention deficit hyperactivity disorder (ADHD), combined type (CMS/HCC) Menorrhagia with regular cycle Attention deficit hyperactivity disorder (ADHD), combined type (CMS/HCC)- Primary JUANITA (generalized anxiety disorder) ([facility]) Generalized anxiety disorder Morbid (severe) obesity due to excess calories (CMS/HCC) Body mass index (BMI) 35.0-35.9, adult documented in this encounter [facility] Evaluation note Note Date & Type Note Facility Evaluation note Diagnosis JUANITA (generalized anxiety disorder) ([facility])- Primary Generalized anxiety disorder Morbid (severe) obesity due to excess calories ([facility]) Obstructive sleep apnea (adult) (pediatric) Body mass index (BMI) 35.0-35.9, adult Attention deficit hyperactivity disorder (ADHD), combined type ([facility]/HCC) Menorrhagia with regular cycle documented in this encounter [facility] Hospital Discharge instructions Note Date & Type Note Facility Hospital Discharge instructions No data available for this section [facility] Progress note Note Date & Type Note Facility Progress note No data available for this section [facility] Summary Purpose Family History No Family History Records FoundNo Family History Records FoundNo Family History Records Found No data available for this section No data available for this section No Family History Records FoundNo Family History Records FoundNo Family History Records FoundNo Family History Records FoundNo Family History Records FoundNo Family History Records FoundNo Family History Records Found Advance Directives No Advanced Directives Records FoundNo Advanced Directives Records FoundNo Advanced Directives Records FoundNo Advanced Directives Records FoundNo Advanced Directives Records FoundNo Advanced Directives Records FoundNo Advanced Directives Records FoundNo Advanced Directives Records FoundNo Advanced Directives Records FoundNo Advanced Directives Records Found Additional Source Comments INFORMATION SOURCE (unrecogn ized section and content) DATE CREATED AUTHOR 11/23/2017 [facility] DATE CREATED AUTHOR AUTHOR'S ORGANIZ ATION 08/20/2021 [facility] DATE CREATED AUTHOR AUTHOR'S ORGANIZ ATION 07/24/2022 [facility] DATE CREATED AUTHOR AUTHOR'S ORGANIZ ATION 10/23/2023 [facility] DATE CREATED AUTHOR AUTHOR'S ORGANIZ ATION 10/24/2023 [facility] DATE CREATED AUTHOR AUTHOR'S ORGANIZ ATION 08/05/2024 [facility] dical Specialists EPIC Patient Care team informatio n (unrecognized section and content) Bag Worker Relationship Specialty Start Date End Date Sudhakar Augustin MD [address] [place] [phone] PCP - General Family Medicine 03/30/24 Ana Wheeler NP [address] [place] [phone] Nurse Practitioner Family Medicine 04/05/23 Ana Wheeler NP [address] [place] [phone] Nurse Practitioner Family Medicine 08/02/23 Bag Worker Relationship Specialty Start Date End Date Sudhakar Augustin MD [address] [place] [phone] PCP - General Family Medicine 03/30/24 Ana Wheeler NP [address] [place] [phone] Nurse Practitioner Family Medicine 04/05/23 Ana Wheeler NP [address] [place] [phone] Nurse Practitioner Family Medicine 08/02/23 Bag Worker Relationship Specialty Start Date End Date Sudhakar Augustin MD [address] [place] [phone] PCP - General Family Medicine 08/02/23 Ana Wheeler NP [address] [place] [phone] Nurse Practitioner Family Medicine 04/05/23 Ana Wheeler NP [address] [place] [phone] Nurse Practitioner Family Medicine 08/02/23 Bag Worker Relationship Specialty Start Date End Date Sudhakar Augustin MD [address] [place] [phone] PCP - General Family Medicine 08/02/23 Ana Wheeler NP [address] [place] [phone] Nurse Practitioner Family Medicine 04/05/23 Ana Wheeler NP [address] [place] [address] Nurse Practitioner Family Medicine 08/02/23 Reason for Visit (unrecogniz ed section and content) Reason Comments Anxiety JUANITA FOR RECORDS PERTAINING TO PATIENTS WHO ARE [...] BE BASED ON THE PRIMARY CLINICAL RECORDS. [employer] provides no warranty or guarantee of the accuracy or completeness of information in this document.
[2024-09-13 06:33] LABS: HCG Qualitative Urine* NEGATIVE (NEGATIVE); Internal Control Within Normal Limits
--- NOTE | 2024-09-13 06:42 | ED.GENADUL1 ---
HPI HPI - General Adult General Chief complaint: Headache Stated complaint: NECK PAIN Time Seen by Provider: 09/13/24 06:20 Source: patient Mode of arrival: ambulance History of Present Illness HPI narrative: patient presents complaining of neck pain. left sided pain. Describes pain at one time as radiating into her left arm but her arm is now normal. Neck pain continues. Denies any injury. States she was at work when she first noticed the discomfort of her neck. Describes stretching her neck while at work. At home she took a nap and when she woke up it was hard to sit up because of the pain left side of her neck. Does not have an occipital headache. Points to her Ethmoid sinus area as the site of a headache. No fever , nausea or dizziness. No weakness or her extremities. Related Data Home Medications ?Medication ?Instructions ?Recorded ?Confirmed dextroamphetamine-amphetamine 5 mg 5 mg PO DAILY 11/03/22 09/13/24 tablet (Adderall) fluoxetine 20 mg capsule (Prozac) 20 mg PO BID 11/03/22 09/13/24 Allergies Allergy/AdvReac Type Severity Reaction Status Date / Time No Known Drug Allergies Allergy Verified 09/13/24 06:13 Opioid HPI Opioid Management Most Recent Opioid Data: Last Pain Scale 0 10/07/23 12:51 10/07/23 Review of Systems ROS Status of ROS 10 or more systems reviewed and unremarkable except as noted in history and below PFSH PFS Social History Little interest or pleasure in doing things: not at all Feeling down, depressed, or hopeless: not at all Exam Constitutional Vital Signs, click to edit/add: Last Vital Signs Temp 98.2 F 09/13/24 06:08 Pulse 90 09/13/24 06:08 Resp 16 09/13/24 06:08 Pulse Ox 100 09/13/24 06:08 O2 Del Method Room Air 09/13/24 06:08 Common normals: no apparent distress (no distress while laying back but pain left neck when she sits up) HENMT Common normals: normocephalic and head/scalp atraumatic Head images:  1. tender Nose: other (pain increases when turning to the left) Respiratory Common normals: normal respiratory effort, no retractions, no use of accessory muscles and clear to auscultation bilaterally Cardio Common normals: regular rate, regular rhythm, S1 normal heart sound and S2 normal heart sound Extremity Common normals: normal to inspection and full ROM Neuro Common normals: oriented x3, CN's II-XII intact bilaterally, moves all extremities, no focal motor deficits and no sensory deficits noted Psych Appearance: grossly normal Course Vital Signs Vital signs: Vital Signs Temperature 98.2 F 09/13/24 06:08 Pulse Rate 90 09/13/24 06:08 Respiratory Rate 16 09/13/24 06:08 Pulse Oximetry 100 09/13/24 06:08 Oxygen Delivery Method Room Air 09/13/24 06:08 Temperature 98.2 F 09/13/24 06:08 Pulse Rate 90 09/13/24 06:08 Respiratory Rate 16 09/13/24 06:08 Pulse Oximetry 100 09/13/24 06:08 Oxygen Delivery Method Room Air 09/13/24 06:08 Medical Decision Making MDM Narrative Medical decision making narrative: patient presents with acute neck pain that worsens when rising up from supine position or turning her head to the left. Workup initiated and care transferred to the [facility] Lab Data Labs: Lab Results 09/13/24 Range/Units 06:22 Urine HCG, Qual Negative (NEGATIVE) Discharge Plan Discharge Patient Disposition: Still a Patient
[2024-09-13 07:14] LABS: Basophils Absolute Auto 0.1 10^3/uL (0.0-0.1); Basophils Percent Auto 0.5 % (0.2-2.0); Eosinophils Absolute Auto 0.2 10^3/uL (0.0-0.7); Eosinophils Percent Auto 1.4 % (0.9-7.0); Hematocrit 38.2 % (36.0-48.0); Hemoglobin 12.4 g/dL (12.0-16.0); Immature Granulocytes Abs Auto 0.02 10^3/uL (0.00-0.03); Immature Granulocytes Pct Auto 0.2 % (0.0-0.5); Lymphocytes Absolute Auto 3.5 10^3/uL (1.2-3.8); Lymphocytes Percent Auto 31.4 % (20.5-60.0); Mean Corpuscular HGB Conc 32.5 g/dL (29.9-35.2); Mean Corpuscular Hemoglobin 25.8 pg (26.7-34.0); Mean Corpuscular Volume 79.6 fL (81.0-99.0); Mean Platelet Volume 9.8 fL (9.5-13.5); Monocytes Absolute Auto 0.8 10^3/uL (0.3-0.8); Neutrophils Absolute Auto 6.5 10^3/uL (1.4-6.5); Neutrophils Percent Auto 59.5 % (43.0-75.0); Platelet Count 359 10^3/uL (150-450); Red Cell Distribution Width 15.1 % (11.0-15.0)
[2024-09-13] MEDS: KETOROLAC TROMETHAMINE 30 MG/ML VIAL 15 MG IVP (07:17)
[2024-09-13] MEDS: ORPHENADRINE 60 MG/2 ML VIAL IV (07:17)
[2024-09-13] MEDS: DEXAMETHASONE SOD PHOS 10 MG/ML VIAL IV (07:17)
[2024-09-13 07:20] LABS: Erythrocyte Sedimentation Rate 13 mm/hr (<=20)
[2024-09-13 07:27] LABS: Anion Gap 13.9; BUN Creatinine Ratio 18.2; Calcium 8.9 mg/dL (8.5-10.1); Carbon Dioxide 24.6 mmol/L (21.0-32.0); Chloride 103 mmol/L (98-107); Estimated GFR (African America >60 (>=60 mL/min/1.73m^2); Estimated GFR (Non-African Ame >60 (>=60 mL/min/1.73m^2); Glucose 116 mg/dL (74-106); Potassium 3.5 mmol/L (3.5-5.1); Sodium 138 mmol/L (136-145)
[2024-09-13 07:31] LABS: C Reactive Protein <0.50 mg/dL (<=0.50)
[2024-09-13 07:56] VITALS: BP 126/88; PULSE 60; O2SAT 98
== END 2024-09-13 07:57 | disposition home or self-care (01) ==
PROVIDERS: Internal Medicine; Emergency Provider Emergency Medicine; PCP Nurse Practitioner
DX: S16.1XXA Strain of muscle, fascia and tendon at neck level, initial encounter (principal); X58.XXXA Exposure to other specified factors, initial encounter
CPT/HCPCS: 36415; 80048; 84703; 85025; 85652; 86140; 96374; 96375; 99284; J1100; J1885; J2360